=== PATIENT | male | born 1955 | race Caucasian/White ===

== ENCOUNTER 2019-07-09 06:49 | Day surgery (SDC) | payer BC ==
[~2019-07-09 06:49] MED LIST: Lactated Ringers 1,000 ML IV SCH; Sodium Chloride 0.9% 10 ML Syringe FLUSH PRN
[2019-07-09] MEDS ORDERED: Propofol 200 MG/20 ML SDV IV ONE (06:50)
--- NOTE | 2019-07-09 08:28 | PCM.PN ---
- General Info Date of Service: 07/09/19 - Review of Systems Systems Review Comment:: 64 y/o male with history of colon polyps here for colonoscopy. He is medically stable to proceed. His recent H and P is reviewed and no significant changes are noted. I have discussed the proposed colonoscopy with the patient. Risks such as bleeding and GI injury discussed and he agrees to proceed. - Patient Data Vitals - Most Recent: Last Vital Signs Temp 97.0 F 07/09/19 07:11 Pulse 66 07/09/19 07:11 Resp 16 07/09/19 07:11 BP 158/98 H 07/09/19 07:24 Pulse Ox 98 07/09/19 07:11 Weight - Most Recent: 337 lb 4.9 oz Med Orders - Current: Current Medications Lactated Ringer's (Ringers, Lactated) 1,000 mls @ 125 mls/hr IV ASDIRECTED BIBI Last Admin: 07/09/19 07:24 Dose: 125 mls/hr Sodium Chloride (Saline Flush) 10 ml FLUSH ASDIRECTED PRN PRN Reason: Keep Vein Open Sepsis Event Note - Focused Exam Vital Signs: Vital Signs Temp Pulse Resp BP Pulse Ox 07/09/19 07:24 158/98 H 07/09/19 07:11 97.0 F 66 16 168/106 H 98 Date Exam was Performed: 07/09/19 Time Exam was Performed: 08:26 - Problem List Review Problem List Initiated/Reviewed/Updated: Yes - My Orders Last 24 Hours: My Active Orders 07/08/19 Dinner Nothing Per Oral Diet [DIET] 07/09/19 06:45 Patient Status [ADT] Routine Patient to Empty Bladder [RC] ASDIRECTED Verify Patient Consent Obtain [RC] ASDIRECTED Lactated Ringers [Ringers, Lactated] 1,000 ml IV ASDIRECTED Sodium Chloride 0.9% [Saline Flush] 10 ml FLUSH ASDIRECTED PRN Peripheral IV Insertion Adult [OM.PC] Routine - Assessment Assessment:: History of colon polyps - Plan Plan:: Colonoscopy
--- NOTE | 2019-07-09 09:08 | PCM.OPNOTE ---
- General Post-Op/Procedure Note Date of Surgery/Procedure: 07/09/19 Operative Procedure(s): Colonoscopy with Polypectomy Findings: Single Splenic flexure polyp Pre Op Diagnosis: History of colon polyps Post-Op Diagnosis: Colon Polyp Anesthesia Technique: MAC Primary Surgeon: Donnie Escudero Pathology: Colon polyp Output, Urine Amount: 0 EBL in mLs: 0 Complications: None Condition: Good
--- NOTE | 2019-07-09 12:01 | OR ---
DATE OF OPERATION: 07/09/2019 SURGEON: Donnie Escudero MD PREOPERATIVE DIAGNOSIS: History of colon polyps. POSTOPERATIVE DIAGNOSIS: Colon polyp. OPERATION PERFORMED: Colonoscopy with polypectomy. INDICATIONS FOR SURGERY: This 64-year-old male has a known history of colon polyps, and he comes today for surveillance colonoscopy. FINDINGS: A single polyp is noted on today's exam. This was an 8 mm polyp, which was sessile in configuration and noted at the level of the splenic flexure. The remainder of the colon appears normal. PROCEDURE IN DETAIL: The patient was taken to the procedure room. He was given intravenous sedation and with him in the left lateral decubitus position, digital rectal exam was performed showing no rectal masses. The Olympus colonoscope was inserted into the rectum, retroflexed examination of the rectal canal was performed. The scope was then carefully advanced under direct visualization through the entire length of the colon until the cecum was reached. Cecal acquisition was confirmed by noting the normal internal cecal anatomy including the appendiceal orifice and ileocecal valve. The scope was then slowly withdrawn, sequentially re-examining the colonic segments. In the splenic flexure, the above-described polyp was identified. This was removed with a cautery snare and retrieved into a polyp trap. The examination was then completed and with no sign of any complication, the scope was removed. The patient was taken from the procedure room in satisfactory condition. ESTIMATED BLOOD LOSS: 0. COMPLICATIONS: None. PROGNOSIS: Good. /[id number] DESHAWN/ISMAEL
== END 2019-07-09 09:45 | disposition home or self-care (01) ==
LOC: FB.SDS 06:49
PROVIDERS: ATTEND Surgery
DX: Z12.11 Encounter for screening for malignant neoplasm of colon (principal); K63.5 Polyp of colon; I10 Essential (primary) hypertension; M06.9 Rheumatoid arthritis, unspecified; M17.10 Unilateral primary osteoarthritis, unspecified knee; Z86.010 Personal history of colon polyps; Z88.6 Allergy status to analgesic agent; Z88.5 Allergy status to narcotic agent; Z79.899 Other long term (current) drug therapy; Z87.891 Personal history of nicotine dependence
CPT/HCPCS: 88305; J2704; J7120

== ENCOUNTER 2020-02-04 14:44 | Emergency (ER) | payer MEDICARE, BC ==
--- NOTE | 2020-02-04 15:14 | EDM.PDOC ---
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 with no good effect states he went on diet and lost 50lb since July has been sticking to the diet pt is on metformin for prediabetes Onset: Sudden Onset Date: 02/03/20 Onset Time: 18:00 Duration: Day(s): (2) Location: Reports: Abdomen Quality: Reports: Ache, Dull Severity: Moderate Improves with: Reports: None Worsens with: Reports: Eating Associated Symptoms: Reports: Loss of Appetite, Nausea/Vomiting Right Upper Abdomen Pain Score (Numeric/FACES): 2 - Related Data Allergies Allergy/AdvReac Type Severity Reaction Status Date / Time naproxen Allergy Other Verified 02/04/20 15:44 oxycodone Allergy Nausea Verified 02/04/20 15:44 Home Meds: Home Meds Betamethasone/Propylene Glyc [Diprolene 0.05%] 1 applic TP BID 07/05/19 [History] Enalapril Maleate [Vasotec] 10 mg PO DAILY 07/05/19 [History] Folic Acid 1 mg PO DAILY 07/05/19 [History] InFLIXimab [Remicade] 100 mg IV ASDIRECTED 07/05/19 [History] Methotrexate 2.5 mg PO MO 07/05/19 [History] hydrOXYzine HCL [hydrOXYzine] 25 mg PO BEDTIME 07/05/19 [History] Acetaminophen/HYDROcodone [Descanso 325-5 MG] 1 tab PO Q6H #20 tablet 02/04/20 [Rx] Past Medical History HEENT History: Reports: None Cardiovascular History: Reports: Hypertension Respiratory History: Reports: None Gastrointestinal History: Reports: Colon Polyp Genitourinary History: Reports: None Musculoskeletal History: Reports: Osteoarthritis, RA Neurological History: Reports: None Psychiatric History: Reports: None Endocrine/Metabolic History: Reports: Obesity/BMI 30+ Hematologic History: Reports: None Immunologic History: Reports: None Oncologic (Cancer) History: Reports: None Dermatologic History: Reports: Venous Stasis Dermatitis Other Dermatologic History: POST-OP WOUND INFECTION - Past Surgical History Head Surgeries/Procedures: Reports: None HEENT Surgical History: Reports: None Cardiovascular Surgical History: Reports: None Respiratory Surgical History: Reports: None GI Surgical History: Reports: Colonoscopy, EGD Male Surgical History: Reports: None Endocrine Surgical History: Reports: None Neurological Surgical History: Reports: None Musculoskeletal Surgical History: Reports: Knee Replacement Other Musculoskeletal Surgeries/Procedures:: RIGHT TOTAL KNEE. Oncologic Surgical History: Reports: None Dermatological Surgical History: Reports: None Social & Family History - Caffeine Use Caffeine Use: Reports: Coffee ED ROS GENERAL - Review of Systems Review Of Systems: See Below Constitutional: Reports: No Symptoms. Denies: Fever, Chills, Malaise, Weakness, Fatigue, Night Sweats HEENT: Reports: No Symptoms Respiratory: Reports: No Symptoms Cardiovascular: Reports: No Symptoms Endocrine: Reports: No Symptoms GI/Abdominal: Reports: Anorexia, Decreased Appetite, Nausea, Vomiting. Denies: Diarrhea Musculoskeletal: Reports: No Symptoms Skin: Reports: No Symptoms. Denies: Jaundice Neurological: Reports: No Symptoms Psychiatric: Reports: No Symptoms Hematologic/Lymphatic: Reports: No Symptoms Immunologic: Reports: No Symptoms ED EXAM, GI/ABD - Physical Exam Exam: See Below Exam Limited By: No Limitations General Appearance: Alert, WD/WN, No Apparent Distress Ears: Normal External Exam Throat/Mouth: Normal Inspection, Normal Lips Head: Atraumatic, Normocephalic Neck: Normal Inspection, Supple, Non-Tender Respiratory/Chest: No Respiratory Distress, Lungs Clear Cardiovascular: Normal Peripheral Pulses, Regular Rate, Rhythm GI/Abdominal Exam: Distended, Tender (in RUQ). No: Guarding, Rigid, Hepatomegaly, Splenomegaly Extremities: Normal Range of Motion Neurological: Alert, Oriented Psychiatric: Normal Affect, Normal Mood Skin Exam: Warm Course - Vital Signs Last Recorded V/S: Last Vital Signs Temp 36.8 C 02/04/20 14:44 Pulse 88 02/04/20 14:44 Resp 16 02/04/20 14:44 BP 148/82 H 02/04/20 14:44 Pulse Ox 98 02/04/20 14:44 - Orders/Labs/Meds Orders: Active Orders 24 hr Category Date Time Status EKG Documentation Completion [RC] ASDIRECTED Care 02/04/20 15:00 Active Abdomen Ltd [US] Stat Exams 02/04/20 15:09 Taken CBC WITH AUTO DIFF [HEME] Stat Lab 02/04/20 15:00 Received EKG 12 Lead [EK] Routine Ther 02/04/20 15:00 Ordered Labs: Laboratory Tests 02/04/20 02/04/20 Range/Units 15:00 15:00 Sodium 136 (135-145) mmol/L Potassium 3.9 (3.5-5.3) mmol/L Chloride 101 (100-110) mmol/L Carbon Dioxide 26 (21-32) mmol/L BUN 28 H (7-18) mg/dL Creatinine 0.8 (0.70-1.30) mg/dL Est Cr Clr Drug Dosing TNP Estimated GFR (MDRD) > 60 (>60) BUN/Creatinine Ratio 35.0 H (9-20) Glucose 116 (80-116) mg/dL Calcium 8.6 (8.6-10.2) mg/dL Total Bilirubin 0.5 (0.1-1.3) mg/dL AST 17 (5-25) IU/L ALT 28 (12-36) U/L Alkaline Phosphatase 82 (56-112) IU/L Troponin I 8.8 (4.0-60.3) pg/mL Total Protein 7.3 (6.0-8.0) g/dL Albumin 3.5 (3.2-4.6) g/dL Globulin 3.8 g/dL Albumin/Globulin Ratio 0.9 Amylase 54 (25-115) U/L Lipase 256 (73-393) U/L Meds: Medications Discontinued Medications Generic Name Dose Route Start Last Admin Trade Name Freq PRN Reason Stop Dose Admin Hydrocodone Bitart/Acetaminophen 1 tab 02/04/20 16:32 02/04/20 16:36 Descanso 325-5 Mg PO 02/04/20 16:33 1 tab ONETIME ONE Administration - Re-Assessments/Exams Free Text/Narrative Re-Assessment/Exam: 02/04/20 16:22 pt had labs and ultrasound done reviewed result with pt agrees to see general surgeon tomorrow pain control for now , (increase fat in diet : eats only proteins Departure - Departure Time of Disposition: 16:10 Disposition: Home, Self-Care 01 Clinical Impression: Cholelithiasis - Discharge Information *PRESCRIPTION DRUG MONITORING PROGRAM REVIEWED*: Not Applicable *COPY OF PRESCRIPTION DRUG MONITORING REPORT IN PATIENT PATRICIA: Not Applicable Prescriptions: Acetaminophen/HYDROcodone [Descanso 325-5 MG] 1 tab PO Q6H #20 tablet Instructions: Cholelithiasis, [id number] Referrals: Jung Villanueva MD [Physician] - 02/05/20 10:15 am PCP,Not In Area [Primary Care Provider] - Forms: ED Department Discharge Additional Instructions: Keep appointment to see General surgeon tomorrow am Sepsis Event Note (ED) - Focused Exam Vital Signs: Vital Signs Temp Pulse Resp BP Pulse Ox 02/04/20 14:44 36.8 C 88 16 148/82 H 98 - My Orders Last 24 Hours: My Active Orders 02/04/20 15:00 EKG Documentation Completion [RC] ASDIRECTED CBC WITH AUTO DIFF [HEME] Stat EKG 12 Lead [EK] Routine 02/04/20 15:09 Abdomen Ltd [US] Stat - Assessment/Plan Last 24 Hours: My Active Orders 02/04/20 15:00 EKG Documentation Completion [RC] ASDIRECTED CBC WITH AUTO DIFF [HEME] Stat EKG 12 Lead [EK] Routine 02/04/20 15:09 Abdomen Ltd [US] Stat
[2020-02-04] MEDS ORDERED: Acetaminophen/HYDROcodone 325-5 MG Tab PO ONE (16:32)
--- NOTE | 2020-02-04 18:12 | US ---
INDICATION: Right upper quadrant abdominal pain. RIGHT UPPER QUADRANT/GALLBLADDER ULTRASOUND: Multiple ultrasonic images were obtained with 2D and color flow imaging 02/04/20 - no comparisons. The liver is somewhat echogenic raising question of fatty liver. No demonstrated focal defects in the liver were seen with the liver measuring 16 cm anteroposteriorly. The gallbladder was not enlarged measuring approximately 8 x 2.8 x 2.8 cm but did include a calculus which appears to be impacted in the neck of the gallbladder. This calculus measures approximately 12 mm. There was a positive ultrasonic Momin's sign at a level of 4/10 but no pericholecystic fluid or significant wall thickening. The possibility of cholecystitis, however, cannot be excluded with this appearance. The right kidney appeared normal measuring 12.2 x 5.8 x 6 cm. The pancreas was not adequately visualized due to intestinal gas. No mass lesions or free fluid collections were demonstrated. IMPRESSION: 1. Cholelithiasis with an impacted stone suggested at the neck of the gallbladder. There was noted a mildly positive ultrasonic Momin's sign of 4/10. 2. Fatty liver. Report was called to Dr. Babcock at approximately 1640 hours. [facility]
== END 2020-02-04 16:45 | disposition home or self-care (01) ==
LOC: FB.ED 14:44
DX: K80.20 Calculus of gallbladder without cholecystitis without obstruction (principal); I10 Essential (primary) hypertension; M06.9 Rheumatoid arthritis, unspecified; E66.9 Obesity, unspecified; Z68.21 Body mass index [BMI] 21.0-21.9, adult; Z88.5 Allergy status to narcotic agent; Z88.6 Allergy status to analgesic agent; Z79.899 Other long term (current) drug therapy
CPT/HCPCS: 36415; 76705; 80053; 82150; 83690; 84484; 85025; 93005; 99284; A9270

== ENCOUNTER 2020-02-07 07:40 | Day surgery (SDC) | payer MEDICARE, BC ==
[2020-02-07] MEDS ORDERED: Lactated Ringers 1,000 ML IV ONE (07:41)
[2020-02-07] MEDS ORDERED: Midazolam 1 MG/ML 2 ML SDV IV ONE (07:41)
[2020-02-07] MEDS ORDERED: Rocuronium 100 MG/10 ML MDV IV ONE (07:41)
[2020-02-07] MEDS ORDERED: Propofol 200 MG/20 ML SDV IV ONE (07:41)
[2020-02-07] MEDS ORDERED: HYDROmorphone 2 MG/ML SDV IV ONE (07:41)
[2020-02-07] MEDS ORDERED: Acetaminophen 1,000 MG/100 ML Infusion Bottle Premix IV ONE (07:41)
[2020-02-07] MEDS ORDERED: Succinylcholine 200 MG/10 ML MDV IV ONE (07:41)
[2020-02-07] MEDS ORDERED: Glycopyrrolate 0.2 MG/ML 5 ML MDV IV ONE (07:41)
[2020-02-07] MEDS ORDERED: Neostigmine Methylsulfate 10 MG/10 ML MDV IVPUSH ONE (07:41)
[2020-02-07] MEDS ORDERED: Dexamethasone 4 MG/ML 5 ML MDV IVPUSH ONE (07:41)
[2020-02-07] MEDS ORDERED: Lidocaine 2% 5 ML SDV INJECT ONE (07:41)
[2020-02-07] MEDS ORDERED: Ondansetron 4 MG/2 ML SDV IVPUSH ONE (07:41)
[2020-02-07] MEDS ORDERED: fentaNYL 100 MCG/2 ML SDV IV ONE (07:41)
--- NOTE | 2020-02-07 10:57 | PCM.OPNOTE ---
- General Post-Op/Procedure Note Date of Surgery/Procedure: 02/07/20 Operative Procedure(s): Lap Gwendolyn Pre Op Diagnosis: Cholecystitis and Cholelithiasis Post-Op Diagnosis: Same Anesthesia Technique: General ET Tube Primary Surgeon: Jung Villanueva Pathology: GB EBL in mLs: 5 Complications: None Condition: Good
--- NOTE | 2020-02-07 14:33 | OR ---
DATE OF OPERATION: 02/07/2020 SURGEON: Jung Villanueva MD PREOPERATIVE DIAGNOSIS: Cholecystitis and cholelithiasis. POSTOPERATIVE DIAGNOSIS: Cholecystitis and cholelithiasis. PROCEDURE: Laparoscopic cholecystectomy. ANESTHESIA: General. DESCRIPTION OF PROCEDURE: The patient was brought to the operating room, where general endotracheal anesthesia was administered. The abdomen was clipped, prepped with ChloraPrep, and draped sterilely. Time-out was performed. An infraumbilical incision was made and extended into the peritoneal cavity without difficulty. The Stormy cannulator was introduced and pneumoperitoneum obtained. The remaining three 5 mm ports were placed in the usual positions. The patient was placed in reverse Trendelenburg position and rotated to the left. The gallbladder was grasped and retracted cephalad. The cystic duct and cystic artery were dissected out with minimal difficulty. Cystic artery was doubly clipped proximally and once distally and then transected. The cystic duct anatomy was reconfirmed and could be seen entering the gallbladder and extending towards the common bile duct. This was milked back into the gallbladder and then doubly clipped proximally and once distally and then transected. The gallbladder was then removed from the bed of the liver without difficulty. The posterior branch of the cystic artery was doubly clipped proximally and cauterized distally. Once the gallbladder was completely freed up, it was brought out through the umbilical port site. The right upper quadrant was inspected and irrigated and there was one spot along the right edge of the cholecystectomy site that oozed a couple of times, so I did place a piece of Nu- Knit Surgicel on this. This was observed for few minutes and remained hemostatic. The ports were removed under direct vision and remained hemostatic. Umbilical fascia was closed with [id number] 0 Vicryl. Skin was closed with 4-0 Vicryl subcuticular sutures. Benzoin and Steri-Strips were placed and Band- Aids applied. The patient tolerated the procedure well and returned to Recovery in stable condition. ESTIMATED BLOOD LOSS: 5 mL. /[id number] GENNA/ISMAEL
--- NOTE | 2020-02-08 13:09 | PCM.HPR ---
H & P Addendum review - H & P Addendum Review Date of Original H & P: 02/05/20 Date Reviewed: 02/07/20 Time Reviewed: 08:45 Patient was Examined: No Changes
== END 2020-02-07 12:25 | disposition home or self-care (01) ==
LOC: FB.SDS 07:40
PROVIDERS: ATTEND Surgery
DX: K80.10 Calculus of gallbladder with chronic cholecystitis without obstruction (principal); I10 Essential (primary) hypertension; E11.9 Type 2 diabetes mellitus without complications; Z11.59 Encounter for screening for other viral diseases; Z88.8 Allergy status to other drugs, medicaments and biological substances
CPT/HCPCS: 00790-QZ; 82962; 88304; J0131; J0330; J1100; J1170; J2001; J2250; J2405; J2704; J2710; J3010; J3490; J7120; U0002

== ENCOUNTER 2021-08-10 17:18 | Observation (INO) | payer MEDICARE, BC ==
[2021-08-10] MEDS ORDERED: Sodium Chloride 0.9% 1,000 ML IV SCH ×2 (17:45→22:30)
[2021-08-10] MEDS ORDERED: hydrALAZINE 20 MG/ML SDV IVPUSH PRN (19:12)
[2021-08-10 19:33] LABS: CORONAVIRUS COVID-19 NAA NEGATIVE (NEGATIVE)
[2021-08-10] MEDS: Pantoprazole 40 MG Vial IVPUSH SCH (19:58)
[2021-08-10] MEDS: Sodium Chloride 0.9% 1,000 ML IV SCH (20:03)
[2021-08-10] MEDS: Ondansetron 4 MG/2 ML SDV IVPUSH SCH ×2 (20:04→23:34)
[2021-08-10] MEDS: HYDROmorphone 2 MG/ML SDV IVPUSH PRN (20:09)
[2021-08-10] MEDS: Enoxaparin 40 MG/0.4 ML Syringe SUBCUT SCH (20:13)
[2021-08-11] MEDS: Sodium Chloride 0.9% 1,000 ML IV SCH (00:19)
[2021-08-11] MEDS: Ondansetron 4 MG/2 ML SDV IVPUSH SCH ×3 (02:58→13:45)
[2021-08-11] MEDS: HYDROmorphone 2 MG/ML SDV IVPUSH PRN (05:39)
[2021-08-11] MEDS ORDERED: Ondansetron 4 MG/2 ML SDV IVPUSH PRN (13:10)
[2021-08-11] MEDS: Acetaminophen 325 MG Tab PO PRN ×2 (15:35→22:50)
[2021-08-11] MEDS: Enoxaparin 40 MG/0.4 ML Syringe SUBCUT SCH (19:46)
[2021-08-11] MEDS: Pantoprazole 40 MG Vial IVPUSH SCH (19:46)
[2021-08-11] MEDS ORDERED: Sodium Chloride 0.9% 10 ML Syringe FLUSH PRN (23:29)
[2021-08-12] MEDS: Acetaminophen 325 MG Tab PO PRN (06:57)
== END 2021-08-12 10:29 | disposition home or self-care (01) ==
LOC: UNDOADMOB 17:27 → INTOOBSV 17:27 → FB.MS 17:27
PROVIDERS: ADMIT Student in an Organized Health Care Education/Training Program; ATTEND Student in an Organized Health Care Education/Training Program
DX: K85.90 Acute pancreatitis without necrosis or infection, unspecified (principal); K76.0 Fatty (change of) liver, not elsewhere classified; E66.01 Morbid (severe) obesity due to excess calories; D72.829 Elevated white blood cell count, unspecified; K42.9 Umbilical hernia without obstruction or gangrene; K65.1 Peritoneal abscess; I10 Essential (primary) hypertension; E11.9 Type 2 diabetes mellitus without complications; E66.9 Obesity, unspecified; Z20.822 Contact with and (suspected) exposure to COVID-19; Z90.49 Acquired absence of other specified parts of digestive tract; Z98.890 Other specified postprocedural states; Z88.5 Allergy status to narcotic agent; Z87.891 Personal history of nicotine dependence; Z88.8 Allergy status to other drugs, medicaments and biological substances; Z79.899 Other long term (current) drug therapy
CPT/HCPCS: 0240U; 36415; 80053; 80061; 82150; 83690; 85025; 96372; 96374; 96375; 96376; A9270; C9113; G0378; G0379; J1170; J1650; J2405; J7030

== ENCOUNTER 2021-10-13 10:56 | Observation (INO) | payer MEDICARE, BC ==
[2021-10-13] MEDS ORDERED: Sodium Chloride 0.9% 10 ML Syringe FLUSH PRN (11:13)
[2021-10-13] MEDS ORDERED: Morphine 4 MG/ML VIAL IVPUSH STA (11:16)
[2021-10-13] MEDS ORDERED: Ondansetron 4 MG/2 ML SDV IVPUSH STA (11:17)
[2021-10-13] MEDS ORDERED: Sodium Chloride 0.9% 1,000 ML IV SCH (12:00)
[2021-10-13] MEDS ORDERED: Iopamidol 755 Mg/ML 100 ML Bottle IV ONE (12:16)
[2021-10-13] MEDS ORDERED: Ondansetron 4 MG/2 ML SDV IVPUSH PRN (14:10)
[2021-10-13] MEDS: Sodium Chloride 0.9% 1,000 ML IV SCH ×2 (14:39→22:39)
[2021-10-13] MEDS: Morphine 4 MG/ML VIAL IVPUSH PRN ×2 (14:40→17:14)
[2021-10-13] MEDS: Acetaminophen 325 MG Tab PO PRN (17:06)
[2021-10-14] MEDS: Acetaminophen 325 MG Tab PO PRN ×2 (01:30→20:17)
[2021-10-14] MEDS: Sodium Chloride 0.9% 1,000 ML IV SCH ×3 (06:34→23:39)
[2021-10-14] MEDS: ENALAPRIL 10 MG PO SCH (09:04)
[2021-10-14] MEDS: Folic Acid 1 MG Tab *PTOM PO SCH (09:04)
[2021-10-14] MEDS: Pantoprazole 40 MG Vial IVPUSH SCH (13:14)
[2021-10-15] MEDS: ENALAPRIL 10 MG PO SCH (08:23)
[2021-10-15] MEDS: Folic Acid 1 MG Tab *PTOM PO SCH (08:23)
[2021-10-15] MEDS: Pantoprazole 40 MG Vial IVPUSH SCH (13:31)
== END 2021-10-15 15:00 | disposition home or self-care (01) ==
LOC: FB.ED 10:56 → UNDOADMOB 13:45 → FB.MS 13:45
PROVIDERS: ADMIT Family Medicine; ATTEND Family Medicine
DX: K85.90 Acute pancreatitis without necrosis or infection, unspecified (principal); E11.9 Type 2 diabetes mellitus without complications; I10 Essential (primary) hypertension; E66.9 Obesity, unspecified; F17.210 Nicotine dependence, cigarettes, uncomplicated; E86.0 Dehydration; Z88.8 Allergy status to other drugs, medicaments and biological substances; Z88.5 Allergy status to narcotic agent; Z79.899 Other long term (current) drug therapy; Z98.890 Other specified postprocedural states; Z20.822 Contact with and (suspected) exposure to COVID-19
CPT/HCPCS: 36415; 71046; 74177; 80048; 80053; 81001; 82150; 83690; 85025; 96374; 96375; 96376; 99283; 99285-25; A9270-GY; C9113; G0378; J2270; J2405; J7030; Q9967; U0002